=== PATIENT | female | born 1985 | race Caucasian/White ===

== ENCOUNTER → 2021-05-22 02:13 | Outpatient (CLI) | payer OTHER, SELFPAY ==
[2021-05-22 12:10] LABS: Influenza A QL RT-PCR Negative (Negative); Influenza B QL RT-PCR Negative (Negative); SARS-CoV-2 RNA PCR Negative
== END ==
PROVIDERS: PCP Family Medicine; Visit Provider Family Medicine
DX: J06.9 Acute upper respiratory infection, unspecified (principal); Z20.822 Contact with and (suspected) exposure to COVID-19
CPT/HCPCS: 87502; C9803; U0003; U0005

== ENCOUNTER 2024-08-04 02:07 | Emergency (ER) | payer BC, SELFPAY ==
--- NOTE | ~2024-08-04 | XR_ITS ---
Left Hand Technique: PA, oblique, and lateral views were obtained. Clinical History: Second digit injury Findings: There is a displaced fracture the distal stacy of the second distal phalanx. No other fract ure or dislocation.. Joint spaces are preserved. Soft tissues are unremarkable. Impression: Acute fracture the distal tuft of the second distal phalanx. Reviewed, dictated and finalized at location . Impression: Acute fracture the distal tuft of the second distal phalanx.
--- OUTSIDE RECORDS SUMMARY | 2024-08-04 02:10 | XMS_ITS | Clinical Summary ---
Author Organization [facility] Address [address] [place] [address] [place] [address] Care Team Providers Care Agronomy Research Manager Name Role Phone Radhika Gregory MD Primary Care Provider [phone] Allergies Active Allergy Reactions Criticality Noted Date Comments Sulfa (Sulfonamide Antibiotics) Rash Low 02/13 Medications fexofenadine HCl (FABIANO ORAL) Take by mouth daily. Active multivitamin (DAILY-TONY) tablet Take 1 Tablet by mouth daily. Active cholecalciferol, vitamin D3, (VITAMIN D3) 5,000 unit Take 5,000 Units by mouth daily. Active cyanocobalamin (VITAMIN B-12) 500 mcg tablet Take 500 mcg by mouth daily. Active lactobacillus combo no.6 (PROBIOTIC COMPLEX ORAL) Take by mouth daily. Active norgestimate-eth inyl estradiol (HSL-TL-JDYTEYPT ORAL) Take by mouth daily. Active Active Problems Problem Noted Date Diagnosed Date Adenosis of breast 03/20/2018 Abnormal ultrasound of breast 03/04/2018 Resolved Problems Problem Noted Date Diagnosed Date Resolved Date Breast mass, right 03/04/2018 04//[id number] Family History Medical History Relation Name Comments Cancer Maternal Uncle prostate Cancer Mother pancreatic Cancer Paternal Grandmother pancrea tic, 72 Relation Name Status Comments Maternal Uncle Alive Mother Alive Paternal Grandmother Social History Tobacco Use Types Packs/Day Years Used Date Smoking Tobacco: Never Smokeless Tobacco: Never Alcohol Use Standard Drinks/Week Comments Yes 0 (1 standard drink = 0.6 oz pur e alcohol) Comments No Sex and Gender Information Value Date Recorded Sex Assigned at Not on file Legal Sex Female 3:34 PM [employer] LAST [employer] Gender Identity Not on file Sexual Orientation Not on file Last Filed Vital Signs Vital Sign Reading Time Taken Comments Blood Pressure 107/71 11/20/2018 10:14 AM CDT Pulse 79 11/20/2018 10:14 AM CDT Temperature 36.5 C (97.7 F) 11/20/2018 10:14 AM CDT Respiratory Rate - - Oxygen Saturation 97% 11/20/2018 10: 14 AM CDT Inhaled Oxygen Concentration - - Weight 83.4 kg (183 lb 14.4 oz) 019 10:14 AM CDT Height 188 cm (6' 2 ) 11/20/2018 10:14 AM CDT Body Mass Index 23.61 11/20/2018 10:14 AM CDT Plan of Treatment Health Maintenance Due Date Last Done Comments DTAP/TDAP/TD VACCINES (1 - Tdap) 2005 HEPATITIS B VACCINES (1 of 3 - 19+ 3-dose series) 2005 HPV/Cotest (21-29) 2007 CERVICAL CANCER SCREENING 2016 HPV/Cotest (30-65) 2016 PAP SMEAR 2016 INFLUENZA VACCINE (#1) 2023 HPV VACCINES Aged Out No longer eligi ble based on patient's age to complete this topic Insurance BCBS BLUE ACCESS/TRUE BLUE PPO Care Teams Agronomy Research Manager Relationship Specialty Start Date End Date Radhika Gregory MD [address] [place] [address] PCP - General Family Practice 03/04/18
[2024-08-04 02:11] VITALS: BP 146/71; PULSE 97; RESP 18; TEMP 36.2; O2SAT 100
--- NOTE | 2024-08-04 02:20 | ED.UPPEXIN ---
HPI - Extremity Injury (Upper) General Chief Complaint: Extremity Injury, Upper Stated Complaint: L index finger Time Seen by Provider: 08/04/24 02:15 Source: patient Mode of arrival: ambulatory Limitations: no limitations History of Present Illness HPI narrative: This is a 39-year-old female who presents to the ED for chief complaint of left index finger injury just prior to arrival. Patient states she accidentally smashed her hand in the trunk of her car. States she has pressure, numbness to the tip of the left index finger. Unsure of tetanus status. Related Data Home Medications ?Medication ?Instructions ?Recorded ?Confirmed ?Last Taken ?Type Lactobacillus cap PO 05/23/21 Unknown History acidophilus-Bifidobac.animalis 2.5 billion cell capsule (Daily Probiotic) cholecalciferol (vitamin D3) 125 125 mcg PO DAILY 05/23/21 Unknown History mcg (5,000 unit) capsule cranberry 500 mg capsule 500 mg PO BID 05/23/21 Unknown History escitalopram oxalate 20 mg tablet 20 mg PO DAILY 05/23/21 Unknown History (Lexapro) fexofenadine 180 mg tablet 180 mg PO DAILY 05/23/21 Unknown History (Olinda Allergy) green tea leaf extract cap PO 05/23/21 Unknown History hydroxyzine HCl 25 mg tablet 25 mg PO BID PRN 05/23/21 Unknown History mecobalamin (vitamin B12) 1,000 1,000 mcg PO DAILY 05/23/21 Unknown History mcg chewable tablet (B12 Active) norgestimate-ethinyl estradiol 1 tablet PO DAILY 05/23/21 Unknown History 0.18mg/0.215mg/0.25mg-0.035mg(28)tablet (Tri-Sprintec (28)) Allergies Allergy/AdvReac Type Severity Reaction Status Date / Time sulfamethizole Allergy Unknown Hives Verified 08/04/24 02:20 Review of Systems Review of Systems: All systems as dictated in HPI [facility] Family History Family History Other Family history of arthritis Family history of malignant neoplasm Hypertension Social History Social History (Updated 05/23/21 @ 13:48 by Rosaline Zapien CMA) Smoking status: Never smoker Second hand tobacco smoke exposure: No Alcohol intake: never Drinks per week: 15 Substance use: never Substance use type: does not use Exam Narrative: GENERAL: Well-appearing, well-nourished, and in no acute distress. HEAD: Normocephalic, atraumatic. EYES: PERRLA and EOMI. ENT: Nares clear, no rhinorrhea or epistaxis. Mucous membranes moist. Oropharynx without tonsillar hypertrophy exudate or other lesions. NECK: Supple. No adenopathy or masses. CHEST: No respiratory distress. Clear to auscultation. No wheezes rales or rhonchi HEART: Regular rate and rhythm. No murmur heard. Normal peripheral pulses. ABDOMEN: Soft, nontender, nondistended, normal active bowel sounds. MSK: Normal range of motion. No edema. SKIN: Left index finger with incomplete avulsion extending across the dorsum of the finger just proximal to the nailbed. The finger nail matrix is completely avulsed from the bed/cuticle. Bleeding controlled NEURO: Alert and oriented x4. No focal deficits. PSYCH: Normal mood and affect. Course Vital Signs Vital signs: Vital Signs Temperature 97.2 F L 08/04/24 02:11 Pulse Rate 97 08/04/24 02:11 Respiratory Rate 18 08/04/24 02:11 Blood Pressure 146/71 H 08/04/24 02:11 Pulse Oximetry 100 08/04/24 02:11 Oxygen Delivery Room Air 08/04/24 02:11 Temperature 97.2 F L 08/04/24 02:11 Pulse Rate 97 08/04/24 02:11 Respiratory Rate 18 08/04/24 02:11 Blood Pressure 146/71 H 08/04/24 02:11 Pulse Oximetry 100 08/04/24 02:11 Oxygen Delivery Room Air 08/04/24 02:11 Procedures Laceration Laceration 1: Date: 08/04/24 Time: 03:11 Site: hand Side (If applicable): left (Index finger) Size (cm): 2 Description: irregular Depth: simple, single layer Local Anesthetic: lidocaine 1% (Digital block) Amount of anesthesia used (mL): 2 Pre-repair: wound explored, irrigated extensively and deep structures intact ====== Skin Level ====== Skin layer closed with: nylon Size (cm): 5-0 Number of sutures: 4 Technique: simple, interrupted ====== Subcutaneous Layer ====== ====== Muscle Layer ====== ====== Tendon Layer ====== Dressing: Nonstick dressing, finger splint MDM - Extremity Injury (Upper) MDM Narrative Medical decision making narrative: This is a 31-year-old female who presents to the ED for chief complaint of laceration injury to left index finger just prior to arrival. Vitals are normal. Exam remarkable for the above. X-rays show tuft fracture of the left distal phalanx. Presentation consistent with open tuft fracture. There is a significant nail bed injury. The wound was well cleansed and irrigated here copiously. Digital block performed and wound was closed primarily with sutures. Laceration instructions given. Attempted to consult Plastic Surgeon, however did not receive a call. Will refer to Plastic surgery for follow-up and encouraged her to call tomorrow. 2 g of Ancef was given IV. She will be given Rx for cephalexin. Patient will be discharged in stable condition. Supportive measures discussed and return precautions given. Patient is understanding and agreeable with plan for discharge with plastic surgery follow-up. Discharge Plan Discharge Clinical Impression: Open fracture of tuft of distal phalanx of finger, Complicated laceration of finger Patient Disposition: Home Condition: Stable Instructions: Antibiotic Form Additional Instructions: Your exam and imaging today show open tuft fracture of the finger. Your laceration was cleansed and closed here in the ED. please follow-up closely with Plastic surgery for re-examination of the wound. Use splint until otherwise directed and change the non steak dressing daily. Take antibiotics as prescribed. If you have any new or worsening symptoms please return to the ER for further evaluation. Patient Language: Malian Prescriptions: New cephalexin 500 mg capsule 500 mg PO Q8H 7 Days Qty: 21 0RF No Action norgestimate-ethinyl estradiol [Tri-Sprintec (28)] 0.18/0.215/0.25 mg-35 mcg (28) tablet 1 tablet PO DAILY escitalopram oxalate [Lexapro] 20 mg tablet 20 mg PO DAILY hydroxyzine HCl 25 mg tablet 25 mg PO BID PRN cranberry 500 mg capsule 500 mg PO BID Rx Instructions: administer with meals green tea leaf extract Capsule PO fexofenadine [Olinda Allergy] 180 mg tablet 180 mg PO DAILY cholecalciferol (vitamin D3) 125 mcg (5,000 unit) capsule 125 mcg PO DAILY Daily Probiotic 2.5 billion cell capsule PO B12 Active 1,000 mcg tablet,chewable 1,000 mcg PO DAILY amoxicillin-pot clavulanate 875-125 mg tablet 1 tablet PO BID Qty: 20 0RF methylprednisolone [Medrol (Rajeev)] 4 mg tablets,dose pack See Rx Instructions PO PER PKG DIR Qty: 21 0RF Rx Instructions: PO PER PKG DIR Follow-up/Referrals: Marck Jansen MD [Physician] - Radhika Gregory MD [Primary Care Provider] - Time of Disposition: 03:10
--- NOTE | 2024-08-04 02:28 | PC.NURSE ---
Pt ambulatory to xray at this time. Lido at bedside. EILEEN Atris made aware.
[2024-08-04] MEDS: TETANUS,DIPHTHERIA,AC PERTUSSIS ADULT (0.5 ML) BOOSTRIX IM (02:41)
[2024-08-04] MEDS: ceFAZolin 2 GM/D5W 50 ML 2 GM/50 ML BAG IVPB (02:59)
--- OUTSIDE RECORDS SUMMARY | 2024-08-04 03:24 | XMS_ITS | Clinical Summary ---
Author Organization [facility] Address [address] [place] [address] [place] [address] Care Team Providers Care Binder Folder Operator Name Role Phone Radhika Gregory MD Primary Care Provider [phone] Allergies Active Allergy Reactions Criticality Noted Date [...] by mouth daily. Active norgestimate-eth inyl estradiol ([id number] ORAL) Take by mouth daily. 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
== END 2024-08-04 03:29 | disposition home or self-care (01) ==
PROVIDERS: Emergency Provider Physician Assistant; PCP Family Medicine
DX: S67.191A Crushing injury of left index finger, initial encounter (principal); W23.0XXA Caught, crushed, jammed, or pinched between moving objects, initial encounter; Z23 Encounter for immunization
CPT/HCPCS: 73130; 90471; 90715; 96365; 99284; J0690